=== PATIENT | male | born 1945 | race African-American/Black ===

== ENCOUNTER 2019-06-30 18:18 | Emergency (ER) | payer MEDICARE ==
[~2019-06-30] VITALS: Ht 175.3 cm; Wt 66.0 kg
[2019-07-01] MEDS ORDERED: HYDROCODONE/ACETAMINOPHEN 10/325MG TABLET PO ONE (01:15)
[2019-07-01 02:39] VITALS: BP 139/89
== END 2019-07-01 02:40 | disposition home or self-care (01) ==
LOC: ER 18:56
DX: C61 Malignant neoplasm of prostate (principal); G89.29 Other chronic pain; M54.9 Dorsalgia, unspecified; Z46.6 Encounter for fitting and adjustment of urinary device; E11.9 Type 2 diabetes mellitus without complications; I10 Essential (primary) hypertension; F12.10 Cannabis abuse, uncomplicated; Z98.890 Other specified postprocedural states
CPT/HCPCS: 99282